=== PATIENT | female | born 1960 | race Caucasian/White ===

== ENCOUNTER 2022-03-19 18:22 | Observation (INO) ==
[2022-03-19] MEDS ORDERED: Iopamidol - 370 500 ML MLS IVP ONE (19:36)
[2022-03-19] MEDS ORDERED: 0.9 % Sodium Chloride 1,000 ML IV ONE (19:43)
[2022-03-19] MEDS ORDERED: Morphine Sulfate 2 MG/ML SYRINGE IVP ONE ×2 (19:43→21:34)
[2022-03-19] MEDS ORDERED: Ondansetron 4 MG/2 ML VIAL IVP ONE (19:43)
[2022-03-19 20:19] LABS: Basophils # 0.1 K/mcL (0.0-0.2); Basophils % 0.7 %; Eosinophils # 0.2 K/mcL (0.0-0.6); Eosinophils % 1.4 %; Hematocrit 49.1 % (35.3-44.9); Hemoglobin 15.8 g/dL (11.5-15.4); Immature Granulocytes % 0.9 % (0-4); Lymphocytes # 2.4 K/mcL (0.6-4.6); Lymphocytes % 15.3 %; Mean Corpuscular HGB Conc 32.2 g/dL (31.6-35.5); Mean Corpuscular Hemoglobin 29.3 pg (28.0-33.3); Mean Corpuscular Volume 91.1 fL (83.0-100.0); Mean Platelet Volume 10.3 fL (9.4-12.4); Monocytes % 6.6 %; Neutrophils # 11.5 K/mcL (1.6-8.9); Platelet Count 373 K/mcL (140-400); Red Blood Count 5.39 M/mcL (3.82-4.97); Segmented Neutrophils % 75.1 %; White Blood Count 15.4 K/mcL (4.3-11.1)
[2022-03-19 20:41] LABS: Alanine Aminotransferase 83 Units/L (7-52); Albumin 5.2 g/dL (3.5-5.7); Albumin/Globulin Ratio 1.3 (1.1-2.2); Alkaline Phosphatase 163 Units/L (34-104); Amylase 44 Units/L (29-103); Aspartate Amino Transferase 76 Units/L (13-39); BUN/Creatinine Ratio 21 (6-26); Bilirubin,Total 1.1 mg/dL (0.3-1.0); Blood Urea Nitrogen 22 mg/dL (6-20); Calcium 11.5 mg/dL (8.6-10.3); Carbon Dioxide 18 mEq/L (23-29); Chloride 104 mEq/L (98-107); Glucose 114 mg/dL (70-105); Lipase 30 Units/L (11-82); Osmolality,Calculated 284 (280-300); Potassium 4.3 mEq/L (3.5-5.1); Sodium 135 mEq/L (136-145); Total Protein 9.2 g/dL (6.4-8.9); Troponin I < 0.03 ng/mL (< 0.04)
[2022-03-19] MEDS ORDERED: Prochlorperazine 10 MG/2 ML VIAL IVP ONE (23:51)
[2022-03-19] MEDS ORDERED: Chloraseptic Spray 177 ML BOTTLE MM PRN (23:58)
[2022-03-20] MEDS ORDERED: Naloxone 0.4 MG/ML INJ IVP PRN (00:37)
[2022-03-20] MEDS ORDERED: Ondansetron 4 MG/2 ML VIAL IVP PRN (00:37)
[2022-03-20] MEDS ORDERED: Levalbuterol Neb 1.25 MG/3 ML IH PRN (00:40)
[2022-03-20] MEDS ORDERED: 0.9 % Sodium Chloride 1,000 ML IVC SCH (00:45)
[2022-03-20] MEDS ORDERED: *HR* HYDROmorphone (PF) 1 MG/ML SYRINGE IVP PRN (00:49)
[2022-03-20 05:33] LABS: Hematocrit 44.1 % (35.3-44.9); Mean Corpuscular Hemoglobin 29.8 pg (28.0-33.3); Mean Corpuscular Volume 93.2 fL (83.0-100.0); Mean Platelet Volume 11.4 fL (9.4-12.4); Platelet Count 243 K/mcL (140-400); Red Blood Count 4.73 M/mcL (3.82-4.97); Red Cell Distribution Width 14.1 % (11.5-14.5); White Blood Count 13.2 K/mcL (4.3-11.1)
[2022-03-20 05:35] LABS: Hemoglobin 14.1 g/dL (11.5-15.4)
[2022-03-20 05:40] LABS: Estimated Average Glucose 137 mg/dl; Hemoglobin A1C 6.4 %
[2022-03-20 06:14] LABS: Calcium 9.9 mg/dL (8.6-10.3); Chol/HDL Ratio 3.5 (0-4.9); Potassium 4.2 mEq/L (3.5-5.1); Thyroid Stimulating Hormone 7.195 mcIU/mL (0.340-5.600)
[2022-03-20 07:19] LABS: Hepatitis B Surface Antigen Nonreactive (Nonreactive)
[2022-03-20 07:48] LABS: Hepatitis B Core IgM Nonreactive (Nonreactive)
[2022-03-20 07:50] LABS: Hepatitis C Virus Antibody Nonreactive (Nonreactive)
[2022-03-20 07:51] LABS: Hepatitis A Antibody IgM Nonreactive (Nonreactive)
[2022-03-20] MEDS: Pantoprazole 40 MG VIAL IVP SCH (09:45)
[2022-03-20] MEDS: Sodium Bicarbonate 75 MEQ in 0.45 % Sodium Chloride 1,000 ML IVC SCH ×2 (10:49→23:21)
[2022-03-20 16:40] LABS: Bacteria,Urine Few per hpf (None-Few); Bilirubin,Urine Negative (Negative); Blood,Urine Negative (Negative); Clarity,Urine Clear (Clear); Color,Urine Yellow (Yellow); Glucose,Urine (UA) Normal (Normal); Ketones,Urine Negative (Negative); Leukocyte Esterase,Urine Negative (Negative); Mucus,Urine Few per lpf (None-Few); Nitrite,Urine Negative (Negative); PH,Urine 5.5 pH Units (5.0-8.0); Protein,Urine 50 mg/dL (Neg-Trace); Specific Gravity,Urine > 1.030 (1.010-1.025); Squamous Epithelial Cell,Urine Few per hpf (None-Few); Urobilinogen,Urine Normal (Normal); WBC,Urine 0-3 per hpf (0-3)
[2022-03-21 03:45] LABS: Basophils # 0.1 K/mcL (0.0-0.2); Basophils % 0.6 %; Eosinophils # 0.3 K/mcL (0.0-0.6); Eosinophils % 2.7 %; Hematocrit 41.8 % (35.3-44.9); Hemoglobin 13.1 g/dL (11.5-15.4); Immature Granulocytes % 0.5 % (0-4); Mean Corpuscular HGB Conc 31.3 g/dL (31.6-35.5); Mean Corpuscular Volume 92.5 fL (83.0-100.0); Mean Platelet Volume 10.3 fL (9.4-12.4); Monocytes # 1.1 K/mcL (0.0-1.3); Monocytes % 10.4 %; Neutrophils # 6.4 K/mcL (1.6-8.9); Platelet Count 303 K/mcL (140-400); Red Blood Count 4.52 M/mcL (3.82-4.97); Red Cell Distribution Width 14.2 % (11.5-14.5); Segmented Neutrophils % 58.8 %; White Blood Count 10.9 K/mcL (4.3-11.1)
[2022-03-21 04:01] LABS: Alanine Aminotransferase 62 Units/L (7-52); Albumin 4.2 g/dL (3.5-5.7); Albumin/Globulin Ratio 1.4 (1.1-2.2); Alkaline Phosphatase 114 Units/L (34-104); Aspartate Amino Transferase 54 Units/L (13-39); BUN/Creatinine Ratio 27 (6-26); Bilirubin,Total 1.1 mg/dL (0.3-1.0); Blood Urea Nitrogen 19 mg/dL (6-20); Calcium 9.2 mg/dL (8.6-10.3); Carbon Dioxide 24 mEq/L (23-29); Chloride 104 mEq/L (98-107); Glucose 84 mg/dL (70-105); Magnesium 1.8 mg/dL (1.6-2.6); Osmolality,Calculated 291 (280-300); Phosphorous 3.7 mg/dL (2.7-4.5); Potassium 3.2 mEq/L (3.5-5.1); Sodium 140 mEq/L (136-145); Total Protein 7.2 g/dL (6.4-8.9)
[2022-03-21 08:08] LABS: Triiodothyronine (T3) Total 93 ng/dL (87-178)
[2022-03-21] MEDS: Pantoprazole 40 MG VIAL IVP SCH (09:19)
[2022-03-21] MEDS ORDERED: DilTIAZem CD (24hr) 180 MG CAP.ER.24H PO SCH (09:45)
[2022-03-21] MEDS ORDERED: Venlafaxine XR (24 HR) 150 MG CAP.ER.24H PO SCH (09:45)
[2022-03-21] MEDS ORDERED: lisinopriL 5 MG TABLET PO SCH (09:45)
[2022-03-21] MEDS ORDERED: FLUoxetine 20 MG CAPSULE PO SCH (09:45)
[2022-03-21 11:55] VITALS: BP 130/57; PULSE 97; TEMP 97.6; O2SAT 95
[2022-03-22] MEDS ORDERED: Metoprolol XL (24 HR) Succ 50 MG TAB.ER.24H PO SCH (09:00)
[2022-03-22] MEDS ORDERED: Tiotropium 10 INH DOSE IH SCH (10:00)
== END 2022-03-21 16:35 | disposition home or self-care (01) ==
LOC: EMEROOARM 18:22 → 3NENU 18:22 → SUATTDRO 22:04 → 3NENU 22:38
PROVIDERS: ADMIT Internal Medicine; ATTEND Family Medicine